=== PATIENT | female | born 1945 | race Caucasian/White ===

== ENCOUNTER 2018-08-12 12:47 | Emergency (ER) | payer SELFPAY ==
--- NOTE | 2018-08-12 13:17 | ERPHSYRPT ---
- History of Present Illness Time Seen by Provider: 08/12/18 13:09 Source: patient Exam Limitations: no limitations Patient Subjective Stated Complaint: SHORTNESS OF BREATH BEGAN 5 DAYS AGO WHILE BURNING TRASH, GOT PROGRESSVIELY WORSE. STATES LEFT SHOULDER AND NECK PAIN X 2 WEESKS. NAUSEA AND VOMITING APPROX 4 DAYS AGO, NONE SINCE. Triage Nursing Assessment: ALERT AND ORIENTED. AMBULATED TO ROOM PER SELF, VISUALLY SHORT OF BREATH. LUNGS DIMINISHED ANS WHEEZING THROUGHOUT. NO EDEMA. PERIPHERAL PEDAL AND RADIAL PULSE WNL. Physician History: The patient is a 72-year-old female with her family complaining that she has developed worsening shortness of breath after burning trash in a new barrel 5 days ago. She denies chest pain. When she gets up to move around she is very short of breath. Her left arm and shoulder are hurting because she has been lifting her sick dog with her left arm. She has a mild cough. She denies fever or chills. Her past medical history is significant for hypertension, CAD , and COPD. Timing/Duration: day(s) (5), gradual onset, worse Activities at Onset: none Severity of Dyspnea-Max: moderate Severity of Dyspnea-Current: moderate Possible Cause: occasional episodes, irritant gases exposure, smoke exposure Modifying Factors: Improves With: albuterol inhaler (mild improvement) Associated Symptoms: cough, No chills Allergies/Adverse Reactions: Penicillins Allergy (Severe, Verified 06/30/13 23:27) ciprofloxacin Allergy (Intermediate, Verified 06/30/13 23:27) doxycycline calcium [From Vibramycin] Allergy (Intermediate, Verified 06/30/13 23:27) doxycycline hyclate [From Vibramycin] Allergy (Intermediate, Verified 06/30/13 23:27) doxycycline monohydrate [From Vibramycin] Allergy (Intermediate, Verified 23:27) iodine Allergy (Intermediate, Verified 06/30/13 23:27) Home Medications: Albuterol Sulfate [Proventil Hfa] 6.7 gm IH BID 06/30/13 [History] Clopidogrel Bisulfate 75 mg [PLAVIX 75 MG Tablet] 75 mg PO DAILY 06/30/13 [History] Famotidine 20 mg [Pepcid 20 MG] 20 mg PO DAILY 06/30/13 [History] Lorazepam 1 mg [Ativan 1 MG] 2 mg PO HS 06/30/13 [History] Metoprolol Succinate 25 mg Xl* [Toprol-Xl 25MG Tablets] 25 mg PO DAILY [History] Nitroglycerin 0.4 mg Tablet [Nitrostat 0.4 MG Tablet] 0.4 mg SL DAILY PRN PRN 06/30/13 [History] Cyclobenzaprine HCl [Flexeril] 5 mg PO HS 08/12/18 [History] Fluoxetine HCl 20 mg [Prozac 20 MG] 20 mg PO DAILY 08/12/18 [History] Fluticasone/Vilanterol [Breo Ellipta 100-25 Mcg INH] 1 each IH BID 08/12/18 [ History] Hx Tetanus, Diphtheria Vaccination/Date Given: Yes Hx Influenza Vaccination/Date Given: No Hx Pneumococcal Vaccination/Date Given: Yes (LONG TIME AGO) - Review of Systems Constitutional: No Fever, No Chills Eyes: No Symptoms Ears, Nose, & Throat: No Symptoms Respiratory: Cough, Dyspnea Cardiac: No Chest Pain, No Edema, No Syncope Abdominal/Gastrointestinal: No Abdominal Pain, No Nausea, No Vomiting, No Diarrhea Genitourinary Symptoms: No Dysuria Musculoskeletal: No Back Pain, No Neck Pain Skin: No Rash Neurological: No Dizziness, No Focal Weakness, No Sensory Changes Psychological: No Symptoms Endocrine: No Symptoms Hematologic/Lymphatic: No Symptoms Immunological/Allergic: No Symptoms All Other Systems: Reviewed and Negative - Past Medical History Pertinent Past Medical History: Yes Cardiac History: Coronary Artery Disease Respiratory History: Asthma Musculoskeletal History: Arthritis GI Medical History: No Pertinent History History: No Pertinent History Psycho-Social History: Depression Female Reproductive Disorders: No Pertinent History - Past Surgical History Past Surgical History: Yes Neuro Surgical History: No Pertinent History Cardiac: CABG Respiratory: No Pertinent History Gastrointestinal: No Pertinent History Genitourinary: No Pertinent History Musculoskeletal: No Pertinent History Female Surgical History: Hysterectomy - Social History Smoking Status: Former smoker Drug Use: none Patient Lives Alone: Yes Significant Family History: no pertinent family hx - Female History Hx Now: No - Nursing Vital Signs Nursing Vital Signs: Initial Vital Signs Temperature 97.8 F 08/12/18 12:48 Pulse Rate 90 08/12/18 12:48 Respiratory Rate 26 H 08/12/18 12:48 Blood Pressure 159/107 08/12/18 12:48 O2 Sat by Pulse Oximetry 99 08/12/18 12:48 Pain Scale Pain Intensity 0 - Physical Exam General Appearance: mild distress Eye Exam: PERRL/EOMI Ears, Nose, Throat Exam: hearing grossly normal Neck Exam: normal inspection, supple Respiratory Exam: diminished breath sounds (in left lung) Cardiovascular/Chest Exam: normal heart sounds, regular rate/rhythm Abdominal/Gastrointestinal Exam: soft, No tenderness, No distention, No mass Rectal Exam: not done Extremity Exam: non-tender, normal range of motion, normal inspection, no calf tenderness, no pedal edema Neurologic Exam: alert, oriented x 3, cooperative, 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 II-XII nml as tested, sensation nml, No motor deficits Skin Exam: normal color, warm, No dry SpO2 Interpretation: normal SpO2: 99 Oxygen Delivery: Nasal Cannula - Course EKG Interpreted by Me: RATE, Sinus Rhythm, NORMAL AXIS, NORMAL INTERVALS, Right Bundle Branch Block - Radiology Exams Chest X-ray Interpretation: Reviewed by me, Teleradiologist Report (per Dr Nava), Other (large effusion of almost entire left lung.) - CT Exams Chest CT Interpretation: Tele-radiologist Report (per Dr Nava), Other (4 X 4 cm left lung mass with multiple mets to liver, adrenals; enlarged mediastinal lymph nodes; large left effusion) Ordered Tests: Active Orders 24 hr Category Date Time Status Exhibitions And Collections Manager STAT Care 08/12/18 13:22 Active EKG-ER Only STAT Care 08/12/18 13:21 Active IV Insertion STAT Care 08/12/18 13:21 Active Oxygen-ED Only NASAL CANNULA 2 lpm Care 08/12/18 13:21 Active CHEST 2 VIEWS (PA AND LAT) Stat Exams 08/12/18 13:22 Completed CHEST WITH CONTRAST [CT] Stat Exams 08/12/18 15:21 Taken BLOOD CULTURE Stat Lab 08/12/18 13:30 Received CBC W DIFF Stat Lab 08/12/18 13:21 Completed CMP Stat Lab 08/12/18 13:21 Completed D-DIMER QUANTITATION Stat Lab 08/12/18 13:00 Completed Lactic Acid Stat Lab 08/12/18 13:21 Completed NT PRO BNP Stat Lab 08/12/18 13:21 Completed TROPONIN Q3H Lab 08/12/18 13:00 Completed TROPONIN Q3H Lab 08/12/18 17:11 Completed TROPONIN Q3H Lab 08/12/18 19:30 Ordered TROPONIN Q3H Lab 08/12/18 22:30 Ordered TROPONIN Q3H Lab 08/13/18 01:30 Ordered Peak Expiratory Flow Rate ONCE RT 08/12/18 13:46 Completed Respiratory Nebulizer STAT RT 08/12/18 13:22 Completed Respiratory Therapy Assessment DAILY RT 08/12/18 13:46 Completed Medication Summary Discontinued Medications Generic Name Dose Route Start Last Admin Trade Name Freq PRN Reason Stop Dose Admin Albuterol/Ipratropium 3 ml 08/12/18 13:21 08/12/18 13:47 Duoneb 0.5-3 Mg/3 Ml Neb IH 08/12/18 13:22 3 ml STAT ONE Administration Albuterol/Ipratropium Confirm 08/12/18 13:40 Duoneb 0.5-3 Mg/3 Ml Neb Administered 08/12/18 13:41 Dose 3 ml IH .STK-MED ONE Diphenhydramine HCl Confirm 08/12/18 15:47 Benadryl 50 Mg/Ml Administered 08/12/18 15:48 Dose 50 mg .ROUTE .STK-MED ONE Diphenhydramine HCl 50 mg 08/12/18 15:51 08/12/18 15:54 Benadryl 50 Mg/Ml IV 08/12/18 15:52 50 mg STAT ONE Administration Methylprednisolone Sodium Succinate Confirm 08/12/18 15:47 Solu-Medrol 125 Mg Administered 08/12/18 15:48 Dose 125 mg .ROUTE .STK-MED ONE Methylprednisolone Sodium Succinate 125 mg 08/12/18 15:51 08/12/18 15:54 Solu-Medrol 125 Mg IV 08/12/18 15:52 125 mg STAT ONE Administration Lab/Rad Data: Laboratory Result Diagrams 08/12/18 13:21 08/12/18 13:21 Laboratory Results 08/12/18 08/12/18 08/12/18 Range/Units 17:11 13:21 13:21 WBC (4.0-10.5) K/mm3 RBC (4.1-5.4) M/mm3 Hgb (12.0-16.0) gm/dl Hct (35-47) % MCV (78-100) fl MCH (26-32) pg MCHC (32-36) g/dl RDW (11.5-14.0) % Plt Count (150-450) K/mm3 MPV (6-9.5) fl Gran % (36.0-66.0) % Eos # (Auto) (0-0.5) Absolute Lymphs (auto) (1.0-4.6) Absolute Monos (auto) (0.0-1.3) Lymphocytes % (24.0-44.0) % Monocytes % (0.0-12.0) % Eosinophils % (0.00-5.0) % Basophils % (0.0-0.4) % Absolute Granulocytes (1.4-6.9) Basophils # (0-0.4) D-Dimer (215-500) ng/mL Sodium 137 (137-145) mmol/L Potassium 4.2 (3.5-5.1) mmol/L Chloride 101 (98-107) mmol/L Carbon Dioxide 27 (22-30) mmol/L Anion Gap 13.1 (5-15) MEQ/L BUN 16 (7-17) mg/dL Creatinine 0.96 (0.52-1.04) mg/dL Estimated GFR > 60.0 ML/MIN Glucose 90 (74-106) mg/dL Lactic Acid 1.8 (0.4-2.0) Calcium 9.5 (8.4-10.2) mg/dL Total Bilirubin 0.50 (0.2-1.3) mg/dL AST 35 (14-36) U/L ALT 12 (0-35) U/L Alkaline Phosphatase 123 (38-126) U/L Troponin I < 0.012 (0.000-0.034) ng/mL NT-Pro-B Natriuret Pep 232 (0-900) pg/mL Serum Total Protein 7.2 (6.3-8.2) g/dL Albumin 4.2 (3.5-5.0) g/dL 08/12/18 08/12/18 08/12/18 Range/Units 13:21 13:00 13:00 WBC 9.7 (4.0-10.5) K/mm3 RBC 4.46 (4.1-5.4) M/mm3 Hgb 13.2 (12.0-16.0) gm/dl Hct 41.4 (35-47) % MCV 92.8 (78-100) fl MCH 29.6 (26-32) pg MCHC 31.9 L (32-36) g/dl RDW 14.0 (11.5-14.0) % Plt Count 339 (150-450) K/mm3 MPV 10.1 H (6-9.5) fl Gran % 59.7 (36.0-66.0) % Eos # (Auto) 0.30 (0-0.5) Absolute Lymphs (auto) 2.59 (1.0-4.6) Absolute Monos (auto) 0.97 (0.0-1.3) Lymphocytes % 26.8 (24.0-44.0) % Monocytes % 10.0 (0.0-12.0) % Eosinophils % 3.1 (0.00-5.0) % Basophils % 0.4 (0.0-0.4) % Absolute Granulocytes 5.76 (1.4-6.9) Basophils # 0.04 (0-0.4) D-Dimer 853 H* (215-500) ng/mL Sodium (137-145) mmol/L Potassium (3.5-5.1) mmol/L Chloride (98-107) mmol/L Carbon Dioxide (22-30) mmol/L Anion Gap (5-15) MEQ/L BUN (7-17) mg/dL Creatinine (0.52-1.04) mg/dL Estimated GFR ML/MIN Glucose (74-106) mg/dL Lactic Acid (0.4-2.0) Calcium (8.4-10.2) mg/dL Total Bilirubin (0.2-1.3) mg/dL AST (14-36) U/L ALT (0-35) U/L Alkaline Phosphatase (38-126) U/L Troponin I < 0.012 (0.000-0.034) ng/mL NT-Pro-B Natriuret Pep (0-900) pg/mL Serum Total Protein (6.3-8.2) g/dL Albumin (3.5-5.0) g/dL - Progress Progress: unchanged Air Movement: fair Blood Culture(s) Obtained: No Antibiotics given: No Counseled pt/family regarding: lab results, diagnosis, rad results - Departure Time of Disposition: 18:34 Departure Disposition: Transfer (Transfer to [facility] per Dr Dalton) Clinical Impression: Lung mass, Pleural effusion on left, Metastatic disease Condition: Stable Critical Care Time: No Referrals: ALYSIA BUSCH [Primary Care Provider] -
[2018-08-12] MEDS ORDERED: DUONEB 0.5-3 MG/3 ml Neb IH ONE ×2 (13:21→13:40)
[2018-08-12 13:30] LABS: BASOPHIL % 0.4 % (0.0-0.4); Basophil (Absolute #) 0.04 (0-0.4); Eosinophil % 3.1 % (0.00-5.0); Granulocyte Absolute (ANC) 5.76 (1.4-6.9); Granulocytes % 59.7 % (36.0-66.0); Hematocrit 41.4 % (35-47); Hemoglobin 13.2 gm/dl (12.0-16.0); Lymphocyte (Absolute #) 2.59 (1.0-4.6); Lymphocytes % 26.8 % (24.0-44.0); Mean Cell Volume 92.8 fl (78-100); Mean Corpuscular Hemoglobin 29.6 pg (26-32); Mean Corpuscular Hgb Concent. 31.9 g/dl (32-36); Mean Platelet Volume 10.1 fl (6-9.5); Monocyte (Absolute #) 0.97 (0.0-1.3); Platelet Count 339 K/mm3 (150-450); Red Blood Count 4.46 M/mm3 (4.1-5.4); White Blood Count 9.7 K/mm3 (4.0-10.5)
[2018-08-12 13:52] LABS: ALBUMIN 4.2 g/dL (3.5-5.0); ALKALINE PHOSPHATASE 123 U/L (38-126); ANION GAP 13.1 MEQ/L (5-15); BLOOD UREA NITROGEN 16 mg/dL (7-17); CHLORIDE 101 mmol/L (98-107); Calcium 9.5 mg/dL (8.4-10.2); Carbon Dioxide 27 mmol/L (22-30); Creatinine 1 0.96 mg/dL (0.52-1.04); Glucose 90 mg/dL (74-106); NT PRO BNP 232 pg/mL (0-900); Potassium 4.2 mmol/L (3.5-5.1); SGOT/AST 35 U/L (14-36); SGPT/ALT 12 U/L (0-35); SODIUM 137 mmol/L (137-145); Total Protein 7.2 g/dL (6.3-8.2)
--- NOTE | 2018-08-12 14:19 | XRAY ---
Indication: Short of breath and chest pain. Comparison: September 11, 2016. AP/lateral chest demonstrates new large left effusion/atelectasis with near complete hemithorax opacification, obscuring left heart margin. Right lung clear. Bony thorax intact again with mild degenerative changes and scoliosis.
[2018-08-12] MEDS ORDERED: solu-MEDROL 125 MG ONE (15:47)
[2018-08-12] MEDS ORDERED: BENADRYL 50 MG/ML ONE (15:47)
[2018-08-12] MEDS ORDERED: BENADRYL 50 MG/ML IV ONE (15:51)
[2018-08-12] MEDS ORDERED: solu-MEDROL 125 MG IV ONE (15:51)
[2018-08-12 18:12] VITALS: O2SAT 99
[2018-08-12 19:16] VITALS: BP 125/105; PULSE 104
--- NOTE | 2018-08-12 23:03 | XRAY ---
Indication: Short of breath and chest pain. COPD. Multiple contiguous axial images obtained through the chest using 100 cc Isovue 370 contrast and PE protocol. Comparison: None There is adequate opacification of the pulmonary arteries. Mild respiration artifact degrades the study. No central pulmonary embolus. Heart is not enlarged and demonstrates previous CABG surgery. Aorta is minimally arteriosclerotic without aneurysm/dissection. Several prominent mediastinal nodes seen in the AP window. Larger left suprahilar nodes, largest 1.8 x 2.0 cm slightly effaces the left main pulmonary artery. Lung parenchyma demonstrates a 4.1 x 4.4 cm left upper lobe noncalcified mass. Large left effusion occupies at least 75% of the left hemithorax with compressive lingular and left lower lobe atelectasis. Suspect a few small inferior medial calcified granulomas. The heart and mediastinal structures slightly shifted midline. Right lung demonstrates minimal peripheral fibrosis/scarring without suspicious pulmonary mass, infiltrate, or effusion. Bony thorax intact with minimal degenerative changes throughout the spine. No suspicious bony lesions. Limited upper abdomen demonstrates multiple low-density hepatic lesions worrisome for metastasis. Right lobe also demonstrates at least 2 hepatic cysts, largest 3.4 cm. 1.9 cm noncalcified left adrenal mass, possible metastasis. A few subcentimeter left renal cysts and calcified splenic granulomas. Impression: 1. Respiration artifact. Negative pulmonary embolus. 2. Large left upper lobe lung mass with large effusion worrisome for malignancy. There is mass effect with heart and mediastinal structures shifted midline. 3. Mediastinal and left suprahilar lymphadenopathy as detailed concerning for metastasis. 4. Probable hepatic metastasis. Incidental 2 right lobe hepatic cysts. 5. Noncalcified left adrenal gland mass. Rule out metastasis. 6. Incidental left renal cysts and evidence for old granulomatous disease. CTDI 23.14
== END 2018-08-12 19:31 | disposition short-term general hospital (02) ==
LOC: ED 12:47
DX: R91.8 Other nonspecific abnormal finding of lung field (principal); J90 Pleural effusion, not elsewhere classified; C79.9 Secondary malignant neoplasm of unspecified site; R06.02 Shortness of breath; Z79.01 Long term (current) use of anticoagulants; Z79.899 Other long term (current) drug therapy
CPT/HCPCS: 36000; 36415; 71046; 71260; 80053; 83605; 83880; 84484; 85025; 85379; 87040; 93005; 93041; 94150; 94640; 96374; 96375; 99285; J1200; J2930; A9270-GY